=== PATIENT | female | born 1945 | race Caucasian/White ===

== ENCOUNTER 2016-06-03 06:52 | Inpatient (IN) | payer OTHER ==
[2016-06-03] MEDS ORDERED: IPRATROPIUM/ALBUTEROL 3 ML DEYVIAL ONE (07:04)
[2016-06-03] MEDS ORDERED: ALBUTEROL 3 ML DEYVIAL ONE (07:10)
--- NOTE | 2016-06-03 07:11 | EDPHY ---
H & P Time Seen by Provider: 06/03/16 07:11 HPI/ROS: CHIEF COMPLAINT: Shortness of breath HISTORY OF PRESENT ILLNESS: This 70-year-old woman has a previous history 3 times of pneumonia and says this feels exactly the same. She says she got a cold from her she says he brought it home from his poker game. She has had a cough and congestion since last Sunday of this week. Today she presents with severe wheezing and cough and shortness of breath. She denies leg swelling or hemoptysis, fever or chills, or previous history of venous thromboembolism. No chest pain. REVIEW OF SYSTEMS: Eye:e no change in vision ENT: no sore throat Cardiac: no chest pain or syncope Pulmonary: HPI Abdomen: no vomiting, diarrhea, abdominal pain. Decreased oral intake. Musculoskeletal: no back pain Skin: no rash Neuro: no headache Constitutional: no fever : no urinary symptoms A comprehensive 10 point review of systems is otherwise negative aside from elements mentioned in the history of present illness. PAST MEDICAL HISTORY: Includes appendectomy, hypertension, bilateral knee replacement. Diabetes, cholecystectomy, bladder cancer, previous pneumonia, hypothyroid. 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 Social history: Tobacco smoker, here with her , physician is Stephanie Cisneros at [facility]. General Appearance: Alert and conversant, cooperative. Eyes: No scleral icterus. ENT, Mouth: Normal mucous membranes. Respiratory: Patient is tachypneic, with bilateral wheezing, and increased expiratory phase. Initial oxygen saturation 71% on room air. Cardiovascular: Regular rate and rhythm. Gastrointestinal: Abdomen is soft and non tender. Neurological: Alert and oriented x3. Normally conversant. Face symmetric, normal movement and sensation in all extremities. Skin: Warm and dry, no rashes. Musculoskeletal: No peripheral edema and no joint swelling. No calf tenderness. Psychiatric: Not agitated. Emergency Department course/MDM: Patient presents with 4 days of upper respiratory symptoms and severe bronchospasm on physical examination. Immediate application of supplemental oxygen, nebulized albuterol and Atrovent, IV Solu-Medrol. 845: Right basilar infiltrate reported by radiologist on x-ray. Severe sepsis declared at this time with lactate greater than 2. Does not have septic shock. Meet SIRS criteria of tachypnea and tachycardia. IV fluid bolus, Levaquin 750 mg IV and as the patient has not been hospitalized in several years. D-dimer negative, severe bronchospasm present on exam, I think pulmonary embolism is unlikely. Will need to be admitted to step-down unit is the patient still is requiring full face mask oxygen because of severe hypoxemia. Patient will be treated as community-acquired pulmonary infection, Levaquin chosen because of multiple medication allergies, she is immunocompromised as noted above. 1046: Improved, less respiratory distress, on nasal cannula oxygen now. 1205: 4 L nasal cannula with saturations in the low 90s. Think it is reasonable to send her to the floor and instead of step down now. Smoking Status: Current every day smoker Constitutional: Initial Vital Signs Temperature (C) 36.5 C 06/03/16 06:55 Heart Rate 98 06/03/16 06:55 Respiratory Rate 24 H 06/03/16 06:55 Blood Pressure 166/79 H 06/03/16 06:55 O2 Sat (%) 71 L 06/03/16 06:55 O2 Delivery Mode Non-Rebreather Mask O2 (L/minute) 15 Allergies/Adverse Reactions: adhesive Allergy (Verified 06/03/16 07:11) cat dander Allergy (Verified 06/03/16 07:11) dog dander Allergy (Verified 06/03/16 07:11) erythromycin base Allergy (Verified 06/03/16 14:55) Rash exenatide [From Byetta] Allergy (Verified 06/03/16 07:11) grass pollen Allergy (Verified 06/03/16 07:11) latex Allergy (Verified 06/03/16 07:11) lisinopril [From Prinivil] Allergy (Verified 06/03/16 07:11) mold Allergy (Verified 06/03/16 07:11) Penicillins Allergy (Verified 06/03/16 14:55) Anaphylaxis petrolatum,white [From Vaseline] Allergy (Verified 06/03/16 07:11) Sulfa (Sulfonamide Antibiotics) Allergy (Verified 06/03/16 07:11) Tetracyclines Allergy (Verified 06/03/16 07:11) BENZOIL PEROXIDE Allergy (Uncoded 06/03/16 07:11) MSG Allergy (Uncoded 06/03/16 07:11) Home Medications: Medication Instructions Recorded CALCIUM CARBONATE [CALCIUM] 600 mg PO DAILY 06/03/16 Herbals/Supplements -Info Only 1 ea PO DAILY 06/03/16 Hydrochlorothiazide [HCTZ (*)] 25 mg PO DAILY 06/03/16 Krill/Om-3/Dha/Epa/Phospho/Ast 1 each PO DAILY 06/03/16 [Krill Oil 1,000 mg Softgel] Levothyroxine [Synthroid 75 mcg 75 mcg PO DAILY06 06/03/16 (*)] Liraglutide [Victoza 3-Shawn] 1.8 mg SQ DAILY 06/03/16 Loratadine 10 mg PO DAILY 06/03/16 Losartan Potassium [Cozaar 50 mg 100 mg PO DAILY 06/03/16 (*)] Multivitamin-Min/Iron/FA/Vit K 1 each PO BID 06/03/16 [Multi-Day Plus Minerals Tablet] Naproxen Sodium [Aleve 220 MG (*)] 440 mg PO BID 06/03/16 Repaglinide [Prandin] 2 mg PO TID 06/03/16 glipiZIDE [Glipizide ER] 10 mg PO DAILY 06/03/16 guaiFENesin [Mucinex 600 MG (*)] 600 mg PO BID 06/03/16 metFORMIN SR [Glucophage XR 750 mg 750 mg PO DAILY@1800 06/03/16 (*)] Medical Decision Making - Diagnostics EKG Interpretation: 12-lead EKG interpreted by me; official reading is in trace master. My interpretation is sinus rhythm with late anterior RS transition rate 95. Imaging: Chest x-ray viewed independently by myself at 7:50 a.m. shows bronchitis but no clear evidence of pneumonia. Differential Diagnosis: Differential diagnosis considered for shortness of breath including but not limited to pulmonary infectious process, COPD, asthma, pulmonary embolus and congestive heart failure. Consult/Admit Bed Type: [place] [id number] Critical Care Time: Critical care time spent by me, Dr. Lewis, exclusively with the care of this patient was 30 minutes, exclusive of PA or INSURANCE COMMISSIONER time and exclusive of separate procedures. The organ system at risk was pulmonary and I ordered supplemental oxygen, IV steroids and nebulized bronchodilators, IV Levaquin 750 mg antibiotic , discussion with hospitalist admitting physician, IV fluid resuscitation; to stabilize the patient and prevent worsening of the patient's condition. - Data Points Laboratory Results: Laboratory Results 06/03/16 07:11 06/03/16 07:11 06/03/16 06/03/16 07:35 07:11 WBC 9.32 10^3/uL (3.80-9.50) RBC 4.74 10^6/uL (4.18-5.33) Hgb 15.3 g/dL (12.6-16.3) Hct 45.4 % (38.0-47.0) MCV 95.8 fL (81.5-99.8) MCH 32.3 pg (27.9-34.1) MCHC 33.7 g/dL (32.4-36.7) RDW 13.6 % (11.5-15.2) Plt Count 263 10^3/uL (150-400) MPV 9.8 fL (8.7-11.7) Neut % (Auto) 72.0 % (39.3-74.2) Lymph % (Auto) 18.9 % (15.0-45.0) [place] % (Auto) 6.8 % (4.5-13.0) Eos % (Auto) 1.3 % (0.6-7.6) Baso % (Auto) 0.5 % (0.3-1.7) Nucleat RBC Rel Count 0.0 % (0.0-0.2) Absolute Neuts (auto) 6.71 H 10^3/uL (1.70-6.50) Absolute Lymphs (auto) 1.76 10^3/uL (1.00-3.00) Absolute Monos (auto) 0.63 10^3/uL (0.30-0.80) Absolute Eos (auto) 0.12 10^3/uL (0.03-0.40) Absolute Basos (auto) 0.05 10^3/uL (0.02-0.10) Absolute Nucleated RBC 0.00 10^3/uL (0-0.01) Immature Gran % 0.5 % (0.0-1.1) Immature Gran # 0.05 10^3/uL (0.00-0.10) D-Dimer < 0.27 ug/mLFEU (0.00-0.50) VBG Lactic Acid 2.2 H mmol/L (0.7-2.1) Sodium 136 mEq/L (134-144) Potassium 4.1 mEq/L (3.5-5.2) Chloride 99 mEq/L (97-110) Carbon Dioxide 26 mEq/l (22-31) Anion Gap 11 mEq/L (8-16) BUN 14 mg/dL (7-23) Creatinine 0.8 mg/dL (0.6-1.0) Estimated GFR > 60 Glucose 169 H mg/dL (70-100) Calcium 9.4 mg/dL (8.5-10.4) Total Bilirubin 0.6 mg/dL (0.1-1.4) Troponin I < 0.012 ng/mL (0-0.034) Influenza Typ A,B (DFA) NEGATIVE FOR FLU (NEGATIVE) Medications Given: Discontinued Medications Albuterol (Proventil Neb) 3 ml IH EDNOW ONE Stop: 06/03/16 07:22 Last Admin: 06/03/16 07:28 Dose: 3 ml Albuterol/Ipratropium (Duoneb) 3 ml IH EDNOW ONE Stop: 06/03/16 07:22 Last Admin: 06/03/16 07:27 Dose: 3 ml Magnesium Sulfate (Magnesium Sulf 2 Gm (Premix)) 50 mls @ 50 mls/hr IV EDNOW ONE Stop: 06/03/16 08:50 Last Admin: 06/03/16 08:03 Dose: 50 mls Sodium Chloride (Ns) 1,000 mls @ 0 mls/hr IV ONCE ONE PRN Reason: Wide Open Stop: 06/03/16 08:18 Last Admin: 06/03/16 08:05 Dose: 1,000 mls Levofloxacin/Dextrose (Levaquin 750 Mg (Premix)) 150 mls @ 100 mls/hr IV EDNOW ONE PRN Reason: Protocol Stop: 06/03/16 10:13 Last Admin: 06/03/16 09:04 Dose: 150 mls Methylprednisolone Sodium Succinate (Solu-Medrol) 125 mg IVP EDNOW ONE Stop: 06/03/16 07:22 Last Admin: 06/03/16 07:27 Dose: 125 mg Sodium Chloride (Ns *For Sepsis Order Set Only*) 3,674 ml IV EDNOW ONE Stop: 06/03/16 08:41 Last Admin: 06/03/16 09:05 Dose: 3,674 ml Departure - Departure Disposition: [facility] Inpatient Acute Clinical Impression: Bronchospasm, acute Pneumonia Qualifiers: Pneumonia type: due to unspecified organism Laterality: right Lung location: lower lobe of lung Qualifier Code: (J18.1) Lobar pneumonia, unspecified organism Condition: Serious
[2016-06-03] MEDS ORDERED: ALBUTEROL 3 ML DEYVIAL IH ONE (07:21)
[2016-06-03] MEDS ORDERED: IPRATROPIUM/ALBUTEROL 3 ML DEYVIAL IH ONE (07:21)
[2016-06-03] MEDS ORDERED: methylPREDNISolone SOD SUCC 125 MG/2 ML VIAL IVP ONE (07:21)
[2016-06-03 07:27] LABS: % IMMATURE GRANULYOCYTES 0.5 % (0.0-1.1); ABSOLUTE IMMATURE GRANULOCYTES 0.05 10^3/uL (0.00-0.10); ADD DIFF? NO; ADD MORPH? NO; ADD SCAN? NO; ATYPICAL LYMPHOCYTE FLAG 20 (0-99); FRAGMENT RBC FLAG 0 (0-99); HEMATOCRIT 45.4 % (38.0-47.0); HEMOGLOBIN 15.3 g/dL (12.6-16.3); LEFT SHIFT FLG 0 (0-99); LIPEMIA HEMOLYSIS FLAG 80 (0-99); MEAN CELL HEMOGLOBIN 32.3 pg (27.9-34.1); MEAN CELL HEMOGLOBIN CONCENTR. 33.7 g/dL (32.4-36.7); MEAN CELL VOLUME 95.8 fL (81.5-99.8); MEAN PLATELET VOLUME 9.8 fL (8.7-11.7); PLATELET CLUMPS FLAG 30 (0-99); PLATELET COUNT 263 10^3/uL (150-400); RED BLOOD CELL COUNT 4.74 10^6/uL (4.18-5.33); RED CELL DISTRIBUTION WIDTH 13.6 % (11.5-15.2)
[2016-06-03 07:40] LABS: ANION GAP 11 mEq/L (8-16); BILIRUBIN,TOTAL 0.6 mg/dL (0.1-1.4); CALCIUM 9.4 mg/dL (8.5-10.4); CARBON DIOXIDE 26 mEq/l (22-31); CHLORIDE 99 mEq/L (97-110); CREATININE 0.8 mg/dL (0.6-1.0); GLOMERULAR FILTRATION RATE > 60; GLUCOSE 169 mg/dL (70-100); POTASSIUM 4.1 mEq/L (3.5-5.2); SODIUM 136 mEq/L (134-144)
--- NOTE | 2016-06-03 07:50 | CPEKG ---
Heart Rate: 95 RR Interval: 632 P-R Interval: 196 QRSD Interval: 92 QT Interval: 376 QTC Interval: 473 P [place]: 70 QRS [place]: 37 T Wave [place]: 74 EKG Severity - ABNORMAL ECG - EKG Impression: SINUS RHYTHM EKG Impression: CONSIDER ANTEROSEPTAL INFARCT Electronically Signed By: Harshal Lewis 03-Jun-2016 07:52:04
[2016-06-03] MEDS ORDERED: MAGNESIUM SULF 2 GM/WATER 50 ML IV ONE (07:51)
--- NOTE | 2016-06-03 07:59 | DX ---
Chest, PA and Lateral History: Dyspnea Comparison: July 07, 2004 Findings: Lung findings remain moderately prominent consistent with underlying COPD. There is chronic or recurrent bronchial wall thickening. Difficult to exclude a small infiltrate at the right base. T here is no pleural effusion. The heart remains enlarged. There is chronic atherosclerotic calcificati on of the aortic arch and proximal brachiocephalic vessels. The pulmonary vascularity is equalized co nsistent with chronic pulmonary venous hypertension. There is no pulmonary edema, Valentine B line forma tion or fissural thickening. There is chronic osteophyte formation in the mid and lower thoracic spin e. There are no compression abnormalities. Impression: Airways disease +- small right basilar infiltrate. 2. Compensated CHF.
[2016-06-03] MEDS ORDERED: NS 1,000 ML IV ONE (08:17)
[2016-06-03] MEDS ORDERED: NS 1,000 ML BAG *FOR SEPSIS ORDER SET ONLY IV ONE (08:40)
[2016-06-03] MEDS ORDERED: ACETAMINOPHEN 325 MG TAB PO PRN (14:25)
[2016-06-03] MEDS ORDERED: ONDANSETRON 4 MG/2 ML VIAL IVP PRN (14:25)
[2016-06-03] MEDS ORDERED: D50W 25 GM/50 ML SYR IVP PRN (14:28)
--- NOTE | 2016-06-03 15:23 | GHP ---
[f rep st] HISTORY AND PHYSICAL DATE OF ADMISSION: 06/03/2016 CHIEF COMPLAINT: Cough. HISTORY: The patient is a 70-year-old female, who has been having cough and congestion for the last 4 days. She has been feeling very short of breath. She has been wheezing. She has been coughing up mucus. She denies any fever. Her plays poker with a group of individuals and he caught a c old there and brought it home to her. She does have a distant history of immunoglobulin deficiency d iagnosed at [facility] many years ago, but she is not maintained on any immunoglobulin infusions. S he continues to be an active smoker one pack per day. In the emergency room, she was in significant respiratory distress requiring 15 L non-rebreather. After initial treatment in the emergency room th ings did stabilize somewhat and she was brought down to 5-6 L of oxygen and admitted to Med/Surg. PAST MEDICAL HISTORY: 1. Diabetes type 2. 2. Hypertension. 3. Bladder cancer. 4. IgG deficiency. 5. Morbid obesity, BMI 47. PAST SURGICAL HISTORY: Appendectomy, knee surgery, cholecystectomy. MEDICATIONS: Please see computer record for full detailed list. ALLERGIES: Allergy to adhesives. SOCIAL HISTORY: She smokes a pack per day for the last 50 years. She occasionally will have a glass of wine. She lives with her . REVIEW OF SYSTEMS: Complete review of systems obtained. Review of systems is negative regarding con stitutional, HEENT, GI, pulmonary, cardiovascular, , hematology, skin, muscular, endocrine, and psy ch except for positives and negatives as in HPI. FAMILY HISTORY: Reviewed, noncontributory to presenting complaint. PHYSICAL EXAMINATION: GENERAL: Well-developed, well-nourished female, in no acute distress. VITAL SIGNS: Temperature 36.7, pulse 89, blood pressure 130/91, currently saturating 94% on 6 L. EYE EXAM INATION: Normal conjunctivae, pupils equal and reactive to light. ENT: Normal ears, nose. Hearing intact. Normal teeth. Oropharynx moist. NECK: Trachea midline. No thyromegaly. CHEST: Slightly increased respiratory effort. LUNGS: Scattered mild wheezing and rales. CARDIOVASCULAR SYSTEM: R egular rhythm. No murmur. No lower extremity edema. ABDOMEN: Soft, nontender. No hepatosplenomeg jarett. SKIN: Warm, dry, intact. No rash. MUSCULOSKELETAL: No cyanosis or clubbing. Strength 5/5 u pper and lower extremities. NEUROLOGIC: Cranial nerves intact. Normal sensation to light touch. P SYCH ASSESSMENT: Alert and oriented x3. Normal mood and affect. Normal judgment and insight. Norm al memory. LABS: White count 9.3, hematocrit 45.4, platelets 263. Sodium 136, potassium 4.1, chloride 99, bica rb 26, BUN 14, creatinine 0.8, glucose 169. Troponin is negative. Influenza negative. D-dimer nega tive. Lactate is 2.2. Chest x-ray shows a right basilar infiltrate. EKG viewed by me. My personal interpretation is normal sinus rhythm, no ST-T wave changes. ASSESSMENT/PLAN: 1. Acute respiratory failure. Initially very high oxygen needs, but with initial treatment she is a lready improving down to 6 L. Will continue to support with oxygen as needed. 2. Chronic obstructive pulmonary disease exacerbation. She has never previously been diagnosed with chronic obstructive pulmonary disease, but she does have a greater than 50 year smoking history whic h is ongoing. We will continue steroids and nebulizers. 3. Pneumonia community acquired potentially secondary to a recent viral infection. Will treat with ceftriaxone and azithromycin. 4. IgG deficiency. This is a distant history and she is not on active treatment. We will check imm unoglobulin levels. 5. Morbid obesity. BMI is 47. This probably does not help her respiratory dynamics problem. 6. Diabetes type 2. We will continue her home medications and watch her glucose closely while she i s on steroids. 7. Hypertension. Continue losartan and hydrochlorothiazide. CODE STATUS: Full. ADMISSION STATUS: Will admit to observation as she is rapidly improving. Will reassess in the a.m. regarding need for ongoing hospitalization. DVT PROPHYLAXIS: She is high risk. I will place her on subcu Lovenox. /[id number]/MODL
[2016-06-03] MEDS: predniSONE 20 MG TAB PO SCH (15:40)
[2016-06-03] MEDS: REPAGLINIDE 2 MG PO SCH ×2 (16:42→20:43)
[2016-06-03] MEDS: IPRATROPIUM/ALBUTEROL 3 ML DEYVIAL IH SCH (18:04)
[2016-06-03] MEDS: metFORMIN SR 750 MG TAB.SR PO SCH (18:30)
[2016-06-03] MEDS: INSULIN REGULAR HUMAN 100 UNIT/ML SC SCH ×2 (18:30→22:09)
[2016-06-03] MEDS: BENZONATATE 100 MG CAP PO PRN (20:42)
[2016-06-03] MEDS: guaiFENesin 600 MG TAB.ER PO SCH (20:42)
[2016-06-03] MEDS: NAPROXEN SODIUM 220 MG TAB PO SCH (20:42)
[2016-06-03] MEDS: guaiFENesin/CODEINE PHOS 10 ML UDCUP PO PRN (23:38)
[2016-06-04] MEDS: IPRATROPIUM/ALBUTEROL 3 ML DEYVIAL IH SCH ×4 (02:54→17:31)
[2016-06-04] MEDS: LEVOTHYROXINE 75 MCG TAB PO SCH (04:56)
[2016-06-04] MEDS: guaiFENesin/CODEINE PHOS 10 ML UDCUP PO PRN ×4 (04:56→22:48)
[2016-06-04] MEDS: BENZONATATE 100 MG CAP PO PRN ×2 (04:56→12:24)
[2016-06-04] MEDS: INSULIN REGULAR HUMAN 100 UNIT/ML SC SCH ×4 (08:22→21:56)
--- NOTE | 2016-06-04 08:36 | HOSPPROG ---
Hospitalist Progress Note Assessment/Plan: patient is a 70-year-old female has been having cough and congestion for 4 days prior to admission. She has also been feeling very short of breath with associated wheezing. She has a distant history of immunoglobulin deficiency diagnosed at [facility] many years ago but has not been maintained on any immunoglobulin infusions. In the emergency room she was in significant respiratory distress requiring 15 L non-rebreather. During my evaluation she is on 8 via CPAP. Today is my 1st encounter with the patient. Chart reviewed. #. Acute hypoxemic respiratory failure/bronchospasm * patient attributes her lung disease to having a immunoglobin deficiency * uses CPAP at night but does not usually use oxygen during the day * D-dimer is negative #. COPD disease exacerbation * on steroids and nebulizers * will add a long acting inhaler #. community-acquired pneumonia * as a throw and ceftriaxone QA #. nicotine dependence * smokes a pack a day/advised cessation #. morbid obesity w a BMI of 47 * likely contributing to her respiratory failure * likely has hypoventilation syndrome secondary to her obesity #. diabetes type 2 * glucose stable this morning #. hypertension * blood pressure stable this morning #. immunoglobin deficiency * labs pending #. dvt prophylaxis: LMWH #. plan: patient will require another midnight stay due to high oxygen use. Will initiate long-acting inhaler and aggressive pulmonary toileting. Subjective: Preeti is feeling poorly this morning/ having frequent coughing bouts. Objective: Vital Signs Temp Pulse Resp BP Pulse Ox 37 C 97 20 128/79 H 94 06/03/16 22:33 06/04/16 00:25 06/04/16 00:25 06/03/16 22:33 06/04/16 00:25 06/03/16 06/04/16 06/05/16 05:59 05:59 05:59 Intake Total 3675 Balance 3675 - Physical Exam Constitutional: no apparent distress, chronically ill appearing, obese, uncomfortable Eyes: PERRL Ears, Nose, Mouth, Throat: hearing normal Cardiovascular: regular rate and rhythym Respiratory: no respiratory distress, clear to auscultation, reduced air movement Gastrointestinal: normoactive bowel sounds, other (large and round) Skin: warm Musculoskeletal: no muscle tenderness Neurologic: AAOx3 Psychiatric: interacting appropriately, not anxious ICD10 Worksheet Patient Problems: Problems Problem Status Diagnosed Bronchospasm, acute Acute Pneumonia Acute
[2016-06-04] MEDS ORDERED: AZITHROMYCIN IV 500 MG in D5W 250 ML IV SCH (09:00)
[2016-06-04] MEDS: LOSARTAN POTASSIUM 50 MG TAB PO SCH (09:29)
[2016-06-04] MEDS: HYDROCHLOROTHIAZIDE 25 MG TAB PO SCH (09:29)
[2016-06-04] MEDS: NAPROXEN SODIUM 220 MG TAB PO SCH ×2 (09:29→21:56)
[2016-06-04] MEDS: guaiFENesin 600 MG TAB.ER PO SCH ×2 (09:29→21:55)
[2016-06-04] MEDS: CETIRIZINE 10 MG TAB PO SCH ×2 (09:29→10:58)
[2016-06-04] MEDS: predniSONE 20 MG TAB PO SCH (09:30)
[2016-06-04] MEDS: REPAGLINIDE 2 MG PO SCH ×3 (09:30→21:56)
[2016-06-04] MEDS: Liraglutide [Victoza 3-Pak] 1.8 MG SQ SCH (09:30)
[2016-06-04] MEDS: NICOTINE 21 MG/24 HR PATCH TD SCH (09:31)
[2016-06-04] MEDS: ENOXAPARIN 40 MG/0.4 ML SYR SC SCH (09:31)
[2016-06-04] MEDS: FLUTICASONE/SALMETER 250/50MCG DISKUS IH SCH ×2 (10:41→21:12)
[2016-06-04] MEDS: metFORMIN SR 750 MG TAB.SR PO SCH (18:37)
[2016-06-05] MEDS: IPRATROPIUM/ALBUTEROL 3 ML DEYVIAL IH SCH ×2 (02:46→04:59)
[2016-06-05] MEDS: guaiFENesin/CODEINE PHOS 10 ML UDCUP PO PRN (05:12)
[2016-06-05] MEDS: LEVOTHYROXINE 75 MCG TAB PO SCH (05:12)
[2016-06-05] MEDS: INSULIN REGULAR HUMAN 100 UNIT/ML SC SCH ×4 (07:43→21:55)
[2016-06-05] MEDS: guaiFENesin 600 MG TAB.ER PO SCH ×2 (08:21→21:55)
[2016-06-05] MEDS: NICOTINE 21 MG/24 HR PATCH TD SCH (08:21)
[2016-06-05] MEDS: predniSONE 20 MG TAB PO SCH (08:21)
[2016-06-05] MEDS: PANTOPRAZOLE SODIUM 40 MG TAB PO SCH (08:22)
[2016-06-05] MEDS: LOSARTAN POTASSIUM 50 MG TAB PO SCH (08:22)
[2016-06-05] MEDS: HYDROCHLOROTHIAZIDE 25 MG TAB PO SCH (08:22)
[2016-06-05] MEDS: CETIRIZINE 10 MG TAB PO SCH (08:22)
[2016-06-05] MEDS: ENOXAPARIN 40 MG/0.4 ML SYR SC SCH ×2 (08:23→21:55)
[2016-06-05] MEDS: REPAGLINIDE 2 MG PO SCH ×3 (08:24→21:56)
[2016-06-05] MEDS: Liraglutide [Victoza 3-Pak] 1.8 MG SQ SCH (08:25)
[2016-06-05] MEDS: NAPROXEN SODIUM 220 MG TAB PO SCH ×2 (08:30→21:55)
[2016-06-05] MEDS ORDERED: LEVALBUTEROL 1.25 MG/3 ML DEYVIAL ONE (10:16)
[2016-06-05] MEDS: FLUTICASONE/SALMETER 250/50MCG DISKUS IH SCH ×2 (10:23→21:44)
[2016-06-05] MEDS: LEVALBUTEROL 1.25 MG/3 ML DEYVIAL IH SCH ×3 (10:24→21:44)
--- NOTE | 2016-06-05 11:21 | HOSPPROG ---
Hospitalist Progress Note Assessment/Plan: patient is a 70-year-old female has been having cough and congestion for 4 days prior to admission. She has also been feeling very short of breath with associated wheezing. She has a distant history of immunoglobulin deficiency diagnosed at [facility] many years ago but has not been maintained on any immunoglobulin infusions. In the emergency room she was in significant respiratory distress requiring 15 L non-rebreather. During my evaluation she is on 7 liters. #. Acute hypoxemic respiratory failure/bronchospasm * patient attributes her lung disease to having a immunoglobin deficiency * uses CPAP at night but does not usually use oxygen during the day * D-dimer is negative #. COPD disease exacerbation * on steroids and nebulizers * will add a long acting inhaler * oxygen levels quickly drop when on room air/ recommended a pulmologist consult / she would prefer not having one at this time #. community-acquired pneumonia * Levaquin * blood cx show no growth #. anxiety * patient lost her sister a year ago and is very upset about his/ is requesting Klonopin/ will order low dose/ explained to her my concern using this med with her hypoxia/ she understands #. nicotine dependence * smokes a pack a day/advised cessation #. morbid obesity w a BMI of 47 * likely contributing to her respiratory failure * likely has hypoventilation syndrome secondary to her obesity #. diabetes type 2 * glucose stable #. hypertension * blood pressure stable this morning #. immunoglobin deficiency * labs pending #. dvt prophylaxis: LMWH #. plan: continue current treatment/ still requiring too much oxygen to safely dc Subjective: Preeti is tearful about loss of her sister. Objective: Vital Signs Temp Pulse Resp BP Pulse Ox 36.7 C 96 16 134/71 H 91 L 06/05/16 07:39 06/05/16 07:39 06/05/16 07:39 06/05/16 08:22 06/05/16 07:39 - Physical Exam Constitutional: not in pain, chronically ill appearing, obese, uncomfortable Eyes: PERRL Ears, Nose, Mouth, Throat: moist mucous membranes Cardiovascular: regular rate and rhythym Respiratory: no respiratory distress, reduced air movement (mid lobes down), expiratory wheeze (scattered) Gastrointestinal: normoactive bowel sounds Skin: warm Neurologic: AAOx3 Psychiatric: interacting appropriately, anxious ICD10 Worksheet Patient Problems: Problems Problem Status Diagnosed Bronchospasm, acute Acute Pneumonia Acute
[2016-06-05] MEDS ORDERED: clonazePAM 0.5 MG TAB PO PRN (11:25)
[2016-06-05] MEDS: OXYMETAZOLINE 30 ML NASAL SPRAY EACHNARE SCH ×2 (15:02→21:56)
[2016-06-05] MEDS: metFORMIN SR 750 MG TAB.SR PO SCH (18:04)
[2016-06-06 06:43] LABS: ANION GAP 9 mEq/L (8-16); CALCIUM 8.7 mg/dL (8.5-10.4); CARBON DIOXIDE 33 mEq/l (22-31); CHLORIDE 101 mEq/L (97-110); CREATININE 0.8 mg/dL (0.6-1.0); GLOMERULAR FILTRATION RATE > 60; GLUCOSE 138 mg/dL (70-100); POTASSIUM 4.1 mEq/L (3.5-5.2); SODIUM 143 mEq/L (134-144)
[2016-06-06 06:55] LABS: % IMMATURE GRANULYOCYTES 0.5 % (0.0-1.1); ABSOLUTE IMMATURE GRANULOCYTES 0.06 10^3/uL (0.00-0.10); ADD DIFF? NO; ADD MORPH? NO; ADD SCAN? YES; FRAGMENT RBC FLAG 20 (0-99); HEMATOCRIT 41.3 % (38.0-47.0); HEMOGLOBIN 13.3 g/dL (12.6-16.3); LEFT SHIFT FLG 0 (0-99); LIPEMIA HEMOLYSIS FLAG 80 (0-99); MEAN CELL HEMOGLOBIN 32.2 pg (27.9-34.1); MEAN CELL HEMOGLOBIN CONCENTR. 32.2 g/dL (32.4-36.7); MEAN PLATELET VOLUME 9.7 fL (8.7-11.7); PLATELET CLUMPS FLAG 0 (0-99); PLATELET COUNT 264 10^3/uL (150-400); RED BLOOD CELL COUNT 4.13 10^6/uL (4.18-5.33); RED CELL DISTRIBUTION WIDTH 13.9 % (11.5-15.2)
[2016-06-06 07:06] LABS: ATYPICAL LYMPHOCYTE FLAG 120 (0-99)
[2016-06-06 07:13] LABS: SCAN NEGATIVE
[2016-06-06] MEDS: ENOXAPARIN 40 MG/0.4 ML SYR SC SCH ×2 (07:57→20:40)
[2016-06-06] MEDS: NAPROXEN SODIUM 220 MG TAB PO SCH ×2 (07:59→20:40)
[2016-06-06] MEDS: PANTOPRAZOLE SODIUM 40 MG TAB PO SCH (07:59)
[2016-06-06] MEDS: guaiFENesin 600 MG TAB.ER PO SCH ×2 (07:59→20:39)
[2016-06-06] MEDS: CETIRIZINE 10 MG TAB PO SCH (08:00)
[2016-06-06] MEDS: HYDROCHLOROTHIAZIDE 25 MG TAB PO SCH (08:00)
[2016-06-06] MEDS: predniSONE 20 MG TAB PO SCH ×2 (08:00→13:59)
[2016-06-06] MEDS: LOSARTAN POTASSIUM 50 MG TAB PO SCH (08:00)
[2016-06-06] MEDS: NICOTINE 21 MG/24 HR PATCH TD SCH (08:01)
[2016-06-06] MEDS: LEVOTHYROXINE 75 MCG TAB PO SCH (08:05)
[2016-06-06] MEDS: INSULIN REGULAR HUMAN 100 UNIT/ML SC SCH ×4 (08:09→20:44)
[2016-06-06] MEDS: Liraglutide [Victoza 3-Pak] 1.8 MG SQ SCH (08:16)
[2016-06-06] MEDS: REPAGLINIDE 2 MG PO SCH ×3 (08:16→20:39)
[2016-06-06] MEDS: LEVALBUTEROL 1.25 MG/3 ML DEYVIAL IH SCH ×4 (08:34→21:34)
[2016-06-06] MEDS: OXYMETAZOLINE 30 ML NASAL SPRAY EACHNARE SCH ×2 (10:01→20:39)
[2016-06-06] MEDS: FLUTICASONE/SALMETER 250/50MCG DISKUS IH SCH ×2 (10:09→21:35)
--- NOTE | 2016-06-06 10:49 | HOSPPROG ---
Hospitalist Progress Note Assessment/Plan: patient is a 70-year-old female has been having cough and congestion for 4 days prior to admission. She has also been feeling very short of breath with associated wheezing. She has a distant history of immunoglobulin deficiency diagnosed at [facility] many years ago but has not been maintained on any immunoglobulin infusions. In the emergency room she was in significant respiratory distress requiring 15 L non-rebreather. #. Acute hypoxemic respiratory failure/bronchospasm * patient attributes her lung disease to having a immunoglobin deficiency * uses CPAP at night but does not usually use oxygen during the day * D-dimer is negative * she is down to 5 liters/improving * Transitional care team setting her a f/u appt with pulmology * increase steroids to bid/ she prefers no IV steroids #. COPD disease exacerbation * on steroids and nebulizers * added a long acting inhaler #. community-acquired pneumonia * Levaquin * blood cx show no growth #. anxiety * patient lost her sister a year ago and is very upset about his/ is requesting Klonopin/ will order low dose #. nicotine dependence * smokes a pack a day/advised cessation * she is very motivated to quit #. morbid obesity w a BMI of 47 * likely contributing to her respiratory failure * likely has hypoventilation syndrome secondary to her obesity #. diabetes type 2 * glucose stable #. hypertension * blood pressure stable this morning #. immunoglobin deficiency * labs pending #. dvt prophylaxis: LMWH #. plan: continue current treatment/ will order home O2 Subjective: Preeti is starting to feel better today/ has some congestion. Objective: Vital Signs Temp Pulse Resp BP Pulse Ox 36.4 C 110 H 20 127/74 H 96 06/06/16 07:43 06/06/16 07:43 06/06/16 07:43 06/06/16 07:43 06/06/16 07:43 Laboratory Results 06/06/16 05:23 06/06/16 05:23 - Physical Exam Constitutional: not in pain, chronically ill appearing, obese Eyes: PERRL Ears, Nose, Mouth, Throat: hearing normal Cardiovascular: regular rate and rhythym Respiratory: no respiratory distress, reduced air movement (air sounds much improved today/better aeration throughout) Skin: warm Musculoskeletal: no muscle tenderness Neurologic: AAOx3 Psychiatric: interacting appropriately ICD10 Worksheet Patient Problems: Problems Problem Status Onset Bronchospasm, acute Acute Chronic Disease Mgmt/Transitional Care Acute Pneumonia Acute
[2016-06-06] MEDS: LACTAID PO SCH (11:30)
[2016-06-06] MEDS ORDERED: predniSONE 20 MG TAB PO SCH (14:00)
[2016-06-06] MEDS: metFORMIN SR 750 MG TAB.SR PO SCH (17:32)
[2016-06-07] MEDS: guaiFENesin/CODEINE PHOS 10 ML UDCUP PO PRN (02:21)
[2016-06-07] MEDS: LEVALBUTEROL 1.25 MG/3 ML DEYVIAL IH SCH ×2 (05:28→10:32)
[2016-06-07] MEDS: LEVOTHYROXINE 75 MCG TAB PO SCH (05:50)
[2016-06-07 06:34] LABS: IMMUNOGLOBULIN A 236 mg/dL (61 - 356); IMMUNOGLOBULIN G 989 mg/dL (767 - 1590); IMMUNOGLOBULIN M 102 mg/dL (37 - 286)
[2016-06-07] MEDS: LACTAID PO SCH (08:19)
[2016-06-07] MEDS: Liraglutide [Victoza 3-Pak] 1.8 MG SQ SCH (08:19)
[2016-06-07] MEDS: OXYMETAZOLINE 30 ML NASAL SPRAY EACHNARE SCH (08:20)
[2016-06-07] MEDS: REPAGLINIDE 2 MG PO SCH (08:20)
[2016-06-07] MEDS: ENOXAPARIN 40 MG/0.4 ML SYR SC SCH (08:21)
[2016-06-07] MEDS: guaiFENesin 600 MG TAB.ER PO SCH (08:21)
[2016-06-07] MEDS: NAPROXEN SODIUM 220 MG TAB PO SCH (08:21)
[2016-06-07] MEDS: predniSONE 20 MG TAB PO SCH (08:21)
[2016-06-07] MEDS: LOSARTAN POTASSIUM 50 MG TAB PO SCH (08:21)
[2016-06-07] MEDS: CETIRIZINE 10 MG TAB PO SCH (08:22)
[2016-06-07] MEDS: PANTOPRAZOLE SODIUM 40 MG TAB PO SCH (08:22)
[2016-06-07] MEDS: INSULIN REGULAR HUMAN 100 UNIT/ML SC SCH ×2 (08:23→11:28)
[2016-06-07] MEDS: NICOTINE 21 MG/24 HR PATCH TD SCH (08:23)
[2016-06-07] MEDS: HYDROCHLOROTHIAZIDE 25 MG TAB PO SCH (08:23)
[2016-06-07] MEDS: FLUTICASONE/SALMETER 250/50MCG DISKUS IH SCH (08:33)
[2016-06-07 11:40] VITALS: BP 180/85; PULSE 113; RESP 20; TEMP 98; O2SAT 93
--- NOTE | 2016-06-07 15:19 | GDS ---
[f rep st] DISCHARGE SUMMARY DISCHARGE DIAGNOSES: 1. Acute hypoxemic respiratory failure. 2. Chronic obstructive pulmonary disease with exacerbation. 3. Community-acquired pneumonia. 4. Anxiety. 5. Nicotine dependence. 6. Morbid obesity. 7. Diabetes mellitus type 2. 8. Hypertension. 9. History of immunoglobulin deficiency. PHYSICAL EXAM: GENERAL: The patient is alert. VITAL SIGNS: Afebrile at 36.4, pulse is 95, respir atory rate is 14, blood pressure is 160/77, she is saturating 97% on 3 L, 87% on room air. I have s een and evaluated the patient on the day of discharge. HOSPITAL COURSE: Ms. Bhatti is a 70-year-old female who presented to the emergency room with co mplaints of shortness of breath. She was evaluated and diagnosed with: 1. Acute hypoxemic respiratory failure. This is multifactorial and has significantly improved. Ho wever, the patient continues to remain hypoxic, requiring 2-3 L of supplemental oxygen. I have pres cribed her outpatient oxygen therapy, and she will follow up with her primary care physician. 2. Chronic obstructive pulmonary disease with exacerbation. She responded well to nebulizer treatm ents and oral steroids. I have provided her a prednisone taper for the outpatient setting. 3. Community-acquired pneumonia. The patient has been treated with Levaquin. Blood cultures demon strate no growth. She will continue supportive Levaquin in the outpatient setting. 4. Anxiety. This is stable. 5. Nicotine dependence. The patient has received smoking cessation education during this hospitali zation. 6. Morbid obesity. The patient's BMI is 47. 7. Diabetes mellitus type 2. Her condition is stable. 8. Hypertension. Continue her previously prescribed antihypertensive medications. 9. Disposition. The patient will be discharged home independently with her on supplemental oxygen. There are no pending studies. DISCHARGE MEDICATIONS: Please refer to EMR form. I have provided the patient a prescription for pr ednisone taper, Levaquin, Advair. I have not adjusted any of the patient's previously prescribed [facility] medications to the best of my knowledge. I spent greater than 35 minutes in the care, coordination and management of this patient's dispositi on. /[id number]/MODL
== END 2016-06-07 12:25 | disposition home or self-care (01) | DRG 189 ==
LOC: INTOOBSV 08:53 → F3E 13:05 → OBSVTOIN 06-04 09:53
PROVIDERS: ADMIT Internal Medicine; ATTEND Internal Medicine
DX: J96.01 Acute respiratory failure with hypoxia (principal); J44.1 Chronic obstructive pulmonary disease with (acute) exacerbation; J18.9 Pneumonia, unspecified organism; D80.3 Selective deficiency of immunoglobulin G [IgG] subclasses; E11.9 Type 2 diabetes mellitus without complications; I10 Essential (primary) hypertension; E03.9 Hypothyroidism, unspecified; E66.01 Morbid (severe) obesity due to excess calories; Z68.42 Body mass index [BMI] 45.0-49.9, adult; Z96.653 Presence of artificial knee joint, bilateral; F17.210 Nicotine dependence, cigarettes, uncomplicated; Z87.01 Personal history of pneumonia (recurrent); Z85.51 Personal history of malignant neoplasm of bladder
CPT/HCPCS: 82784-90; 96365; G0378; J0456; J0696; J1650; J1815; J1956

== ENCOUNTER 2017-08-10 22:38 | Emergency (ER) | payer OTHER ==
--- NOTE | 2017-08-10 23:01 | CPEKG ---
Heart Rate: 88 RR Interval: 682 P-R Interval: 196 QRSD Interval: 86 QT Interval: 372 QTC Interval: 450 P [place]: 59 QRS [place]: 23 T Wave [place]: 73 EKG Severity - ABNORMAL ECG - EKG Impression: SINUS RHYTHM EKG Impression: CONSIDER ANTEROSEPTAL INFARCT Electronically Signed By: Lonnie Cormier 11-Aug-2017 04:53:47
--- NOTE | 2017-08-10 23:13 | EDPHY ---
H & P Stated Complaint: LUQ PAIN RADIATING TO BACK X 4 DAYS Time Seen by Provider: 08/10/17 22:51 HPI/ROS: Chief Complaint: Left-sided back and abdominal pain HPI: 71-year-old woman with a history of type 2 diabetes and COPD is presenting with 4 days of constant left flank pain and left upper quadrant abdominal pain. Pain is been waxing waning. At worst is a 10/10. Has been having some improvement with approximate. Is worse with movement. No nausea or vomiting. No chest pain or shortness of breath. No central abdominal pain. No constipation, last bowel movement was yesterday evening. No urinary urgency or frequency or discoloration. No fevers or chills. No diarrhea. ROS: 10 point Review of Systems is negative except as noted in the HPI. PMH: Type 2 diabetes, COPD Social History: No smoking, no alcohol, no recreational drug use Family History: non-contributory Physical Exam: Gen: Awake, Alert, No Distress HEENT: Nose: no rhinorrhea Eyes: PERRLA, EOMI Mouth: Moist mucosa Neck: Supple, no JVD Chest: nontender, lungs clear to auscultation Heart: S1, S2 normal, no murmur Abd: Soft, non-tender, no guarding Back: no CVA tenderness, no midline tenderness, moderate left flank musculoskeletal tenderness reproducing presenting complaint Ext: no edema, non-tender Skin: no rash Neuro: CN II-XII intact, Sensation grossly intact, Strength 5/5 in bilateral upper and lower extremities - Personal History Current Tetanus Diphtheria and Acellular Pertussis (TDAP): Yes Tetanus Vaccine Date: 2016 - Medical/Surgical History Hx Asthma: No Hx Chronic Respiratory Disease: Yes Hx Diabetes: Yes Hx Cardiac Disease: Yes Hx Renal Disease: No Hx Cirrhosis: No Hx Alcoholism: No Hx HIV/AIDS: No Hx Splenectomy or Spleen Trauma: No Other PMH: APPY, HTN, BILAT KNEE REPLAC, DIABETES, GALL BLADDER REMOVAL, CATARACTS, BLADDER CA, HYPOTHYROID, PNEUMONIA, OSTEOARTHRITIS, CASSIE, FIBROMYALGIA , COPD - Social History Smoking Status: Former smoker Constitutional: Initial Vital Signs Temperature (C) 36.4 C 08/10/17 22:44 Heart Rate 87 08/10/17 22:44 Respiratory Rate 16 08/10/17 22:44 Blood Pressure 169/64 H 08/10/17 22:44 O2 Sat (%) 92 08/10/17 22:44 O2 Delivery Mode Nasal Cannula O2 (L/minute) 2 Allergies/Adverse Reactions: adhesive Allergy (Verified 06/03/16 07:11) cat dander Allergy (Verified 06/03/16 07:11) dog dander Allergy (Verified 06/03/16 07:11) erythromycin base Allergy (Verified 06/03/16 14:55) Rash exenatide [From Byetta] Allergy (Verified 06/03/16 07:11) grass pollen Allergy (Verified 06/03/16 07:11) latex Allergy (Verified 06/03/16 07:11) lisinopril [From Prinivil] Allergy (Verified 06/03/16 07:11) mold Allergy (Verified 06/03/16 07:11) Penicillins Allergy (Verified 06/03/16 14:55) Anaphylaxis petrolatum,white [From Vaseline] Allergy (Verified 06/03/16 07:11) Sulfa (Sulfonamide Antibiotics) Allergy (Verified 06/03/16 07:11) Tetracyclines Allergy (Verified 06/03/16 07:11) BENZOIL PEROXIDE Allergy (Uncoded 06/03/16 07:11) MSG Allergy (Uncoded 06/03/16 07:11) Home Medications: Medication Instructions Recorded CALCIUM CARBONATE [CALCIUM] 600 mg PO DAILY 06/03/16 Herbals/Supplements -Info Only 1 ea PO DAILY 06/03/16 Hydrochlorothiazide [HCTZ (*)] 25 mg PO DAILY 06/03/16 Krill/Om-3/Dha/Epa/Phospho/Ast 1 each PO DAILY 06/03/16 [Krill Oil 1,000 mg Softgel] Levothyroxine [Synthroid 75 mcg 75 mcg PO DAILY06 06/03/16 (*)] Loratadine 10 mg PO DAILY 06/03/16 Losartan Potassium [Cozaar 50 mg 100 mg PO DAILY 06/03/16 (*)] Multivit-Min/Iron/Folic Acid/K 1 each PO BID 06/03/16 [Multi-Day Plus Minerals Tablet] Naproxen Sodium [Aleve 220 MG (*)] 440 mg PO BID 06/03/16 metFORMIN SR [Glucophage XR 750 mg 750 mg PO DAILY@1800 06/03/16 (*)] Anoro Ellipta 62.5-25 Mcg INH 08/10/17 Farxiga 08/10/17 Metoprolol Succinate 08/10/17 Nasacort 08/10/17 Soolantra 08/10/17 Tresiba Flextouch U-100 08/10/17 Trulicity 08/10/17 novoLOG 08/10/17 Hydrocodone/Acetaminophen 1 - 2 each PO Q4-6PRN PRN #10 08/11/17 [Hydrocodon-Acetaminophen 5-325] tablet Medical Decision Making - Diagnostics EKG Interpretation: ECG time 10:59 p.m., sinus rhythm with a rate of 88, normal axis, there are Q- waves in V1 through V2 consistent with possible old anteroseptal infarct. These are unchanged compared to an ECG from 03 June 2016. No acute changes. ED Course/Re-evaluation: Patient's liver functions normal. Kidney functions normal. She has some glucose in her urine otherwise no hematuria or signs of infection. She is improved after IV analgesia. Troponins negative. ECG is nonacute. Abdomen is soft and benign. I think her symptoms are secondary to musculoskeletal back pain. She is completely neurologically intact. There are no red flags for spinal or infectious process. Will send her home with a few hydrocodone as needed. Follow up with primary care physician, return with worsening. I have offered her CT scan rule out the possibility of kidney stone although I think this is unlikely given the lack of hematuria. Patient is declining at this time. - Data Points Laboratory Results: Laboratory Results 08/10/17 23:13 08/10/17 23:13 08/11/17 08/10/17 08/10/17 00:25 23:13 23:13 WBC 8.40 10^3/uL 10^3/uL (3.80-9.50) RBC 4.70 10^6/uL 10^6/uL (4.18-5.33) Hgb 14.2 g/dL g/dL (12.6-16.3) Hct 43.5 % % (38.0-47.0) MCV 92.6 fL fL (81.5-99.8) MCH 30.2 pg pg (27.9-34.1) MCHC 32.6 g/dL g/dL (32.4-36.7) RDW 14.5 % % (11.5-15.2) Plt Count 286 10^3/uL 10^3/uL (150-400) MPV 9.2 fL fL (8.7-11.7) Neut % (Auto) 66.7 % % (39.3-74.2) Lymph % (Auto) 21.5 % % (15.0-45.0) [place] % (Auto) 7.0 % % (4.5-13.0) Eos % (Auto) 3.7 % % (0.6-7.6) Baso % (Auto) 0.6 % % (0.3-1.7) Nucleat RBC Rel Count 0.0 % % (0.0-0.2) Absolute Neuts (auto) 5.60 10^3/uL 10^3/uL (1.70-6.50) Absolute Lymphs (auto) 1.81 10^3/uL 10^3/uL (1.00-3.00) Absolute Monos (auto) 0.59 10^3/uL 10^3/uL (0.30-0.80) Absolute Eos (auto) 0.31 10^3/uL 10^3/uL (0.03-0.40) Absolute Basos (auto) 0.05 10^3/uL 10^3/uL (0.02-0.10) Absolute Nucleated RBC 0.00 10^3/uL 10^3/uL (0-0.01) Immature Gran % 0.5 % % (0.0-1.1) Immature Gran # 0.04 10^3/uL 10^3/uL (0.00-0.10) Sodium 139 mEq/L mEq/L (135-145) Potassium 3.9 mEq/L mEq/L (3.5-5.2) Chloride 99 mEq/L mEq/L (97-110) Carbon Dioxide 27 mEq/l mEq/l (22-31) Anion Gap 13 mEq/L mEq/L (8-16) BUN 21 mg/dL mg/dL (7-23) Creatinine 1.1 mg/dL H mg/dL (0.6-1.0) Estimated GFR 49 Glucose 129 mg/dL H mg/dL (70-100) Calcium 9.4 mg/dL mg/dL (8.5-10.4) Total Bilirubin 0.5 mg/dL mg/dL (0.1-1.4) AST 21 IU/L IU/L (14-46) ALT 34 IU/L IU/L (9-52) Alkaline Phosphatase 84 IU/L IU/L (38-126) Troponin I < 0.012 ng/mL ng/mL (0.000-0.034) Total Protein 6.7 g/dL g/dL (6.3-8.2) Albumin 3.8 g/dL g/dL (3.5-5.0) Lipase 73 IU/L IU/L (23-300) Urine Color YELLOW Urine Appearance HAZY Urine pH 5.0 (5.0-7.5) Ur Specific [place] 1.021 (1.002-1.030) Urine Protein NEGATIVE (NEGATIVE) Urine Ketones NEGATIVE (NEGATIVE) Urine Blood NEGATIVE (NEGATIVE) Urine Nitrate NEGATIVE (NEGATIVE) Urine Bilirubin NEGATIVE (NEGATIVE) Urine Urobilinogen NEGATIVE EU EU (0.2-1.0) Ur Leukocyte Esterase NEGATIVE (NEGATIVE) Urine RBC 1-3 /hpf /hpf (0-3) Urine WBC 1-3 /hpf /hpf (0-3) Ur Epithelial Cells TRACE /lpf /lpf (NONE-1+) Urine Bacteria TRACE /hpf H /hpf (NONE SEEN) Urine Glucose 3+ H (NEGATIVE) Medications Given: Discontinued Medications Sodium Chloride (Ns) 1,000 mls @ 0 mls/hr IV ONCE ONE PRN Reason: Wide Open Stop: 08/10/17 23:49 Last Admin: 08/10/17 23:50 Dose: 1,000 mls Morphine Sulfate (Morphine) 4 mg IVP ONCE ONE Stop: 08/10/17 23:09 Last Admin: 08/10/17 23:20 Dose: 4 mg Morphine Sulfate (Morphine) 2 mg IVP EDNOW ONE Stop: 08/11/17 00:31 Last Admin: 08/11/17 00:34 Dose: 2 mg Departure - Departure Disposition: Home, Routine, Self-Care Clinical Impression: Back pain Condition: Good Instructions: Back Pain (ED), Lower Back Exercises (ED) Additional Instructions: Take ibuprofen, 600 mg, 3 times a day. You may also take hydrocodone with acetaminophen as needed for breakthrough pain. Make sure to remain active. Did do not lay in bed or sit in a chair for long periods. It is important to remain active and keep your back moving in order to improve. Please see the attached back exercise instructions. Referrals: Stephanie Duarte MD [Primary Care Provider] - As per Instructions Prescriptions: Hydrocodone/Acetaminophen [Hydrocodon-Acetaminophen 5-325] 1 - 2 each PO Q4- 6PRN PRN #10 tablet PRN Reason: Pain, Severe
[2017-08-10 23:20] LABS: PLATELET COUNT 286 10^3/uL (150-400)
[2017-08-10] MEDS ORDERED: NS 1,000 ML IV ONE (23:48)
[2017-08-11 01:39] VITALS: BP 129/68
== END 2017-08-11 01:43 | disposition home or self-care (01) ==
DX: M54.9 Dorsalgia, unspecified (principal); J44.9 Chronic obstructive pulmonary disease, unspecified; E11.9 Type 2 diabetes mellitus without complications; I10 Essential (primary) hypertension; Z79.4 Long term (current) use of insulin; Z85.51 Personal history of malignant neoplasm of bladder; Z87.891 Personal history of nicotine dependence; Z91.040 Latex allergy status
CPT/HCPCS: 93005; 96361; 96374; 96376; 99284; J2270

== ENCOUNTER 2017-08-12 14:50 | Emergency (ER) | payer OTHER ==
--- NOTE | 2017-08-12 15:11 | EDPHY ---
H & P Stated Complaint: Here 2 days ago for same co;not better, here for re-eval Time Seen by Provider: 08/12/17 15:10 HPI/ROS: CHIEF COMPLAINT: Left upper quadrant pain HISTORY OF PRESENT ILLNESS: The patient presents to the ED with left upper quadrant pain and left flank pain. The patient reports her symptoms began 2 days ago. She was seen in the emergency department. She had a negative urinalysis unremarkable laboratory studies and a normal EKG. Patient has been taking Vicodin without improvement of her symptoms. She reports moderate to severe pain worsened with attempted movement. The patient reports that she is also developed a rash in the area of her pain over the past day. REVIEW OF SYSTEMS: A comprehensive 10 point review of systems is otherwise negative aside from elements mentioned in the history of present illness. Source: Patient Exam Limitations: No limitations - Personal History Tetanus Vaccine Date: 2016 - Medical/Surgical History Hx Asthma: No Hx Chronic Respiratory Disease: Yes Hx Diabetes: Yes Hx Cardiac Disease: Yes Hx Renal Disease: No Hx Cirrhosis: No Hx Alcoholism: No Hx HIV/AIDS: No Hx Splenectomy or Spleen Trauma: No Other PMH: APPY, HTN, BILAT KNEE REPLAC, DIABETES, GALL BLADDER REMOVAL, CATARACTS, BLADDER CA, HYPOTHYROID, PNEUMONIA, OSTEOARTHRITIS, CASSIE, FIBROMYALGIA , COPD - Social History Smoking Status: Former smoker - Physical Exam Exam: General Appearance: Alert, mild discomfort Eyes: Pupils equal and round no pallor or injection ENT, Mouth: Mucous membranes moist Respiratory: There are no retractions, lungs are clear to auscultation Cardiovascular: Regular rate and rhythm Gastrointestinal: Abdomen is soft and nontender, no masses, bowel sounds normal Neurological: 5/5 strength all 4 extremities Skin: Rash consistent with shingles noted in the left back and anterior abdominal wall Musculoskeletal: Neck is supple nontender Extremities: symmetrical, full range of motion Constitutional: Initial Vital Signs Temperature (C) 37.3 C 08/12/17 14:57 Heart Rate 83 08/12/17 14:57 Respiratory Rate 18 08/12/17 14:57 Blood Pressure 153/60 H 08/12/17 14:57 O2 Sat (%) 91 L 08/12/17 14:57 O2 Delivery Mode Room Air Allergies/Adverse Reactions: adhesive Allergy (Verified 08/12/17 14:56) cat dander Allergy (Verified 08/12/17 14:56) dog dander Allergy (Verified 08/12/17 14:56) erythromycin base Allergy (Verified 08/12/17 14:56) Rash exenatide [From By[place]] Allergy (Verified 08/12/17 14:56) grass pollen Allergy (Verified 08/12/17 14:56) latex Allergy (Verified 08/12/17 14:56) lisinopril [From Prinivil] Allergy (Verified 08/12/17 14:56) mold Allergy (Verified 08/12/17 14:56) Penicillins Allergy (Verified 08/12/17 14:56) Anaphylaxis petrolatum,white [From Vaseline] Allergy (Verified 08/12/17 14:56) Sulfa (Sulfonamide Antibiotics) Allergy (Verified 08/12/17 14:56) Tetracyclines Allergy (Verified 08/12/17 14:56) BENZOIL PEROXIDE Allergy (Uncoded 06/03/16 07:11) MSG Allergy (Uncoded 06/03/16 07:11) Home Medications: Medication Instructions Recorded CALCIUM CARBONATE [CALCIUM] 600 mg PO DAILY 06/03/16 Herbals/Supplements -Info Only 1 ea PO DAILY 06/03/16 Hydrochlorothiazide [HCTZ (*)] 25 mg PO DAILY 06/03/16 Krill/Om-3/Dha/Epa/Phospho/Ast 1 each PO DAILY 06/03/16 [Krill Oil 1,000 mg Softgel] Levothyroxine [Synthroid 75 mcg 75 mcg PO DAILY06 06/03/16 (*)] Loratadine 10 mg PO DAILY 06/03/16 Losartan Potassium [Cozaar 50 mg 100 mg PO DAILY 06/03/16 (*)] Multivit-Min/Iron/Folic Acid/K 1 each PO BID 06/03/16 [Multi-Day Plus Minerals Tablet] Naproxen Sodium [Aleve 220 MG (*)] 440 mg PO BID 06/03/16 metFORMIN SR [Glucophage XR 750 mg 750 mg PO DAILY@1800 06/03/16 (*)] Anoro Ellipta 62.5-25 Mcg INH 08/10/17 Farxiga 08/10/17 Metoprolol Succinate 08/10/17 Nasacort 08/10/17 Soolantra 08/10/17 Tresiba Flextouch U-100 08/10/17 Trulicity 08/10/17 novoLOG 08/10/17 Hydrocodone/Acetaminophen 1 - 2 each PO Q4-6PRN PRN #10 08/11/17 [Hydrocodon-Acetaminophen 5-325] tablet Lidocaine [Lidoderm] 1 each TP AD PRN #15 adh..patch 08/12/17 Valacyclovir HCl [Valtrex] 1,000 mg PO TID #21 tab 08/12/17 predniSONE [prednisone 20mg (RX)] 3 tab PO DAILY #15 tab 08/12/17 Medical Decision Making ED Course/Re-evaluation: The patient presents to the ED with a complaint of acute left flank and abdominal pain secondary to shingles. The patient will be given a prescription for prednisone and Valtrex. She also given a prescription for Lidoderm patch. The patient's clinical presentation is consistent with post herpetic neuralgia. Differential Diagnosis: Differential diagnosis considered includes herpes zoster, myofascial strain, pneumonia, rib fracture - Data Points Laboratory Results: Laboratory Results 08/12/17 15:20 08/12/17 15:20 08/12/17 08/12/17 15:20 15:20 WBC 6.94 10^3/uL 10^3/uL (3.80-9.50) RBC 4.93 10^6/uL 10^6/uL (4.18-5.33) Hgb 14.9 g/dL g/dL (12.6-16.3) Hct 45.4 % % (38.0-47.0) MCV 92.1 fL fL (81.5-99.8) MCH 30.2 pg pg (27.9-34.1) MCHC 32.8 g/dL g/dL (32.4-36.7) RDW 14.4 % % (11.5-15.2) Plt Count 273 10^3/uL 10^3/uL (150-400) MPV 9.3 fL fL (8.7-11.7) Neut % (Auto) 74.2 % % (39.3-74.2) Lymph % (Auto) 15.7 % % (15.0-45.0) [place] % (Auto) 5.8 % % (4.5-13.0) Eos % (Auto) 3.3 % % (0.6-7.6) Baso % (Auto) 0.6 % % (0.3-1.7) Nucleat RBC Rel Count 0.0 % % (0.0-0.2) Absolute Neuts (auto) 5.15 10^3/uL 10^3/uL (1.70-6.50) Absolute Lymphs (auto) 1.09 10^3/uL 10^3/uL (1.00-3.00) Absolute Monos (auto) 0.40 10^3/uL 10^3/uL (0.30-0.80) Absolute Eos (auto) 0.23 10^3/uL 10^3/uL (0.03-0.40) Absolute Basos (auto) 0.04 10^3/uL 10^3/uL (0.02-0.10) Absolute Nucleated RBC 0.00 10^3/uL 10^3/uL (0-0.01) Immature Gran % 0.4 % % (0.0-1.1) Immature Gran # 0.03 10^3/uL 10^3/uL (0.00-0.10) Sodium 141 mEq/L mEq/L (135-145) Potassium 4.2 mEq/L mEq/L (3.5-5.2) Chloride 102 mEq/L mEq/L (97-110) Carbon Dioxide 28 mEq/l mEq/l (22-31) Anion Gap 11 mEq/L mEq/L (8-16) BUN 20 mg/dL mg/dL (7-23) Creatinine 0.9 mg/dL mg/dL (0.6-1.0) Estimated GFR > 60 Glucose 146 mg/dL H mg/dL (70-100) Calcium 9.9 mg/dL mg/dL (8.5-10.4) Medications Given: Discontinued Medications Miscellaneous Medication (Icy Hot Lidocaine/Menthol 4%/1% Patch) 2 patch TD EDNOW ONE Stop: 08/12/17 16:01 Last Admin: 08/12/17 16:06 Dose: 2 patch Departure - Departure Disposition: Home, Routine, Self-Care Clinical Impression: Shingles Condition: Good Instructions: Shingles (ED) Additional Instructions: 1. Apply lidocaine patch to area of pain as directed 2. Continue Vicodin for pain 3. Prednisone as directed 4. Valtrex as directed Referrals: Stephanie Duarte MD [[facility] [place]] - As per Instructions Prescriptions: Lidocaine [Lidoderm] 1 each TP AD PRN #15 adh..patch PRN Reason: Pain, Breakthrough predniSONE [prednisone 20mg (RX)] 3 tab PO DAILY #15 tab Valacyclovir HCl [Valtrex] 1,000 mg PO TID #21 tab
[2017-08-12 15:28] LABS: PLATELET COUNT 273 10^3/uL (150-400)
[2017-08-12] MEDS ORDERED: LIDOCAINE 4%/MENTHOL 1% PATCH TD ONE ×2 (15:45→16:00)
[2017-08-12 16:08] VITALS: BP 152/73
[2017-08-12] MEDS ORDERED: PATCH REMOVAL 1 EA PATCH TD SCH (21:00)
== END 2017-08-12 16:10 | disposition home or self-care (01) ==
DX: B02.9 Zoster without complications (principal); I10 Essential (primary) hypertension; E11.9 Type 2 diabetes mellitus without complications; J44.9 Chronic obstructive pulmonary disease, unspecified; Z79.4 Long term (current) use of insulin; Z85.51 Personal history of malignant neoplasm of bladder; Z87.891 Personal history of nicotine dependence; Z91.040 Latex allergy status

== ENCOUNTER 2017-08-14 12:12 | Emergency (ER) | payer OTHER ==
[2017-08-14 12:27] VITALS: BP 179/77
--- NOTE | 2017-08-14 13:08 | EDPHY ---
H & P Time Seen by Provider: 08/14/17 13:04 HPI/ROS: Chief complaint. Abdomen, back pain HPI. Patient is 71-year-old female here with left back and left upper quadrant abdominal pain for approximately 1 week. Patient was seen in our emergency department on August 10 with same complaints. Workup was normal. At that time she has been having discomfort for about 4 days. Workup was normal she is treated with hydrocodone. She was seen in our department again on August 12 and now had a rash in the involved area where she is having her pain. Diagnosis of shingles was made. She was started on prednisone, Valtrex, lidocaine patch. Workup interpret in terms of labs was again normal. Patient now is here complaining of continued pain in the area with continued rash. She felt that the pain was somewhat worse last evening. She has been using the hydrocodone now has had no bowel movement for 6 days. No fever. No chest pain no cough. No vomiting. No diarrhea. Patient thinks she may have a kidney stone because the pain is so bad. ROS Constitutional. no fever/chills, no weakness Eyes. no problems with vision ENT. no sore throat, no nasal drainage Cardiovascular. no chest pain Respiratory. no shortness of breath, no cough Abdominal. Left upper quadrant abdominal pain . no problems urinating MS. Left back pain Skin. Shingles rash in the left back flank and left upper abdomen Lymph. no swollen glands Neuro. no headache, no dizziness, no difficulty walking or with speech Past Medical/Surgical History: Past medical history appendectomy, hypertension, diabetes, cholecystectomy, cataracts, bladder cancer, hypothyroid, pneumonia, osteoarthritis, fibromyalgia , COPD Social History: , nonsmoker, no alcohol Smoking Status: Former smoker Physical Exam: General Appearance: Alert well-developed female mild distress vital signs are stable Eyes: Pupils equal and round no pallor or injection. ENT, Mouth: Mucous membranes are moist. Respiratory: There are no retractions, lungs are clear to auscultation. Cardiovascular: Regular rate and rhythm. Gastrointestinal: Abdomen is soft and nontender, no masses, bowel sounds normal. Neurological: Awake and alert, sensory and motor exams grossly normal. Skin: Shingles type rash in the approximately T10 dermatomal on the left wrapping from the left side of her thoracic spine to the left upper abdomen to the midline. Her left upper quadrant is tender with palpation through the rash but she has no tenderness in the left lower quadrant or right abdomen. Musculoskeletal: Neck is supple nontender. Extremities symmetrical, full range of motion. Psychiatric: Patient is oriented X 3, there is no agitation. Constitutional: Initial Vital Signs Temperature (C) 37.2 C 08/14/17 12:25 Heart Rate 79 08/14/17 12:25 Respiratory Rate 18 08/14/17 12:25 Blood Pressure 179/77 H 08/14/17 12:25 O2 Sat (%) 91 L 08/14/17 12:25 O2 Delivery Mode Room Air Allergies/Adverse Reactions: adhesive Allergy (Verified 08/12/17 14:56) cat dander Allergy (Verified 08/12/17 14:56) dog dander Allergy (Verified 08/12/17 14:56) erythromycin base Allergy (Verified 08/12/17 14:56) Rash exenatide [From [place]] Allergy (Verified 08/12/17 14:56) grass pollen Allergy (Verified 08/12/17 14:56) latex Allergy (Verified 08/12/17 14:56) lisinopril [From Prinivil] Allergy (Verified 08/12/17 14:56) mold Allergy (Verified 08/12/17 14:56) Penicillins Allergy (Verified 08/12/17 14:56) Anaphylaxis petrolatum,white [From Vaseline] Allergy (Verified 08/12/17 14:56) Sulfa (Sulfonamide Antibiotics) Allergy (Verified 08/12/17 14:56) Tetracyclines Allergy (Verified 08/12/17 14:56) BENZOIL PEROXIDE Allergy (Uncoded 06/03/16 07:11) MSG Allergy (Uncoded 06/03/16 07:11) Home Medications: Medication Instructions Recorded CALCIUM CARBONATE [CALCIUM] 600 mg PO DAILY 06/03/16 Herbals/Supplements -Info Only 1 ea PO DAILY 06/03/16 Hydrochlorothiazide [HCTZ (*)] 25 mg PO DAILY 06/03/16 Krill/Om-3/Dha/Epa/Phospho/Ast 1 each PO DAILY 06/03/16 [Krill Oil 1,000 mg Softgel] Levothyroxine [Synthroid 75 mcg 75 mcg PO DAILY06 06/03/16 (*)] Loratadine 10 mg PO DAILY 06/03/16 Losartan Potassium [Cozaar 50 mg 100 mg PO DAILY 06/03/16 (*)] Multivit-Min/Iron/Folic Acid/K 1 each PO BID 06/03/16 [Multi-Day Plus Minerals Tablet] Naproxen Sodium [Aleve 220 MG (*)] 440 mg PO BID 06/03/16 metFORMIN SR [Glucophage XR 750 mg 750 mg PO DAILY@1800 06/03/16 (*)] Anoro Ellipta 62.5-25 Mcg INH 08/10/17 Farxiga 08/10/17 Metoprolol Succinate 08/10/17 Nasacort 08/10/17 Soolantra 08/10/17 Tresiba Flextouch U-100 08/10/17 Trulicity 08/10/17 novoLOG 08/10/17 Hydrocodone/Acetaminophen 1 - 2 each PO Q4-6PRN PRN #10 08/11/17 [Hydrocodon-Acetaminophen 5-325] tablet Lidocaine [Lidoderm] 1 each TP AD PRN #15 adh..patch 08/12/17 Valacyclovir HCl [Valtrex] 1,000 mg PO TID #21 tab 08/12/17 predniSONE [prednisone 20mg (RX)] 3 tab PO DAILY #15 tab 08/12/17 oxyCODONE/APAP 5/325 [Percocet 1 tab PO Q4-6PRN PRN #14 tab 08/14/17 5/325] Medical Decision Making Procedures: I-STAT glucose is 156 ED Course/Re-evaluation: Review of the current literature in up-to-date under add went for adjuvant therapy for herpes zoster shows there is no role for gabapentin, tricyclic antidepressants. They recommend narcotics only. This is not post herpetic neuralgia as the patient currently has herpes zoster. Re-evaluation patient is stable. The patient, her and I discussed i- STAT results, urinalysis results, treatment plan including criteria for return and importance of follow-up and further evaluation. She they expressed understand Differential Diagnosis: This appears to be uncomplicated herpes zoster. Patient does have diabetes and her blood sugar is somewhat high because she is on prednisone. Again there is no indication for post herpetic agitated aunt therapy as the patient has current herpes. No evidence for secondary infection. No evidence for significant hyperglycemia. No evidence for urinary tract infection. - Data Points Laboratory Results: 08/14/17 13:20 Urine Color PALE YELLOW Urine Appearance CLEAR Urine pH 6.0 (5.0-7.5) Ur Specific [place] 1.007 (1.002-1.030) Urine Protein NEGATIVE (NEGATIVE) Urine Ketones NEGATIVE (NEGATIVE) Urine Blood NEGATIVE (NEGATIVE) Urine Nitrate NEGATIVE (NEGATIVE) Urine Bilirubin NEGATIVE (NEGATIVE) Urine Urobilinogen NEGATIVE EU EU (0.2-1.0) Ur Leukocyte Esterase NEGATIVE (NEGATIVE) Urine RBC NONE SEEN /hpf /hpf (0-3) Urine WBC 1-3 /hpf /hpf (0-3) Ur Epithelial Cells TRACE /lpf /lpf (NONE-1+) Urine Bacteria TRACE /hpf H /hpf (NONE SEEN) Urine Glucose 3+ H (NEGATIVE) Departure - Departure Disposition: Home, Routine, Self-Care Clinical Impression: Herpes zoster Qualifiers: Herpes zoster complications: without complications Qualified Code(s): B02.9 - Zoster without complications Condition: Good Instructions: Shingles (ED), Constipation (ED) Additional Instructions: Continue regular medications including using Valtrex, prednisone, lidocaine patches. Ibuprofen 600 mg every 6 hr and Percocet for pain. Increased fluids including fruit and prune juice. Laxatives such as MiraLax, zee Colace, magnesium citrate. Follow up with your regular physician especially if no bowel movement in the next 1-2 days. Recheck in 2-3 days without fail Referrals: Stephanie Duarte MD [Primary Care Provider] - 2-3 days without fail Prescriptions: oxyCODONE/APAP 5/325 [Percocet 5/325] 1 tab PO Q4-6PRN PRN #14 tab PRN Reason: Pain, Moderate
== END 2017-08-14 15:42 | disposition home or self-care (01) ==
DX: B02.9 Zoster without complications (principal); I10 Essential (primary) hypertension; E11.9 Type 2 diabetes mellitus without complications; J44.9 Chronic obstructive pulmonary disease, unspecified; Z79.84 Long term (current) use of oral hypoglycemic drugs; Z85.51 Personal history of malignant neoplasm of bladder; Z87.891 Personal history of nicotine dependence; Z91.040 Latex allergy status
CPT/HCPCS: 82947-QW

== ENCOUNTER → 2017-09-13 | Outpatient (CLI) | payer OTHER | LOC: BMCIMAGING 15:14 | PROVIDERS: ATTEND Internal Medicine Rheumatology | DX: M19.011 Primary osteoarthritis, right shoulder (principal); M19.012 Primary osteoarthritis, left shoulder ==